=== PATIENT | male | born 1945 | race Caucasian/White ===

== ENCOUNTER 2018-03-10 08:25 | Emergency (ER) | payer OTHER ==
[~2018-03-10] VITALS: Ht 180.3 cm; Wt 74.8 kg
[2018-03-10] MEDS ORDERED: LOSARTAN POTASS50 MG (08:45)
[2018-03-10] MEDS ORDERED: METFORMIN HCL500 MG (08:45)
[2018-03-10] MEDS ORDERED: TOPROL XL25 M1 (08:45)
[2018-03-10] MEDS ORDERED: SIMVASTATIN40 MG (08:45)
[2018-03-10] MEDS ORDERED: ASPIR 8181 MG (08:45)
== END 2018-03-10 18:43 | disposition home or self-care (01) ==
LOC: ER 08:25
DX: R00.1 Bradycardia, unspecified (principal)